=== PATIENT | male | born 1975 | race Caucasian/White ===

== ENCOUNTER 2017-06-13 11:03 | Emergency (ER) | payer MEDICAID, SELFPAY ==
[2017-06-13] MEDS: HumuLIN R (REGULAR) INSULIN (NovoLIN R) **100U/ML** PER UNIT IV ×2 (12:59)
[2017-06-13 14:26] LABS: BEDSIDE GLUCOSE 258 MG/DL (70-105)
== END 2017-06-13 15:55 | disposition home or self-care (01) ==
LOC: M ED 11:03
DX: E10.65 Type 1 diabetes mellitus with hyperglycemia (principal); Z89.429 Acquired absence of other toe(s), unspecified side; Z79.4 Long term (current) use of insulin
CPT/HCPCS: 99284

== ENCOUNTER → 2017-07-18 | Outpatient (REF) | payer MEDICAID ==
[2017-07-18 14:19] LABS: BASO # 0.1 10^3/uL (0.0-0.2); BASO % 1.4 % (0.0-1.0); EOS # 0.1 10^3/uL (0.0-0.50); EOS % 1.9 % (0.0-3.0); HEMATOCRIT 41.3 % (42.0-52.0); HEMOGLOBIN 14.1 g/dl (14.0-18.0); IMMATURE GRANULOCYTE % 0.2 % (0-3.0); LYMPH # 1.5 10^3/uL (1.5-4.5); LYMPH % 28.8 % (24.0-44.0); MEAN CORPUSCULAR HEMOGLOBIN 28.8 pg (27.0-33.0); MEAN CORPUSCULAR HGB CONC 34.1 g/dl (32.0-36.5); MEAN CORPUSCULAR VOLUME 84.3 fl (80.0-96.0); MONO # 0.6 10^3/uL (0.0-0.8); MONO % 12.3 % (0.0-5.0); NEUTROPHILS # 2.8 10^3/uL (1.8-7.7); NEUTROPHILS % 55.4 % (36.0-66.0); PLATELET COUNT, AUTOMATED 299 10^3/uL (150-450); RED CELL DISTRIBUTION WIDTH 11.8 % (11.5-14.5); WHITE BLOOD COUNT 5.1 10^3/uL (4.0-10.0)
[2017-07-18 14:40] LABS: ALBUMIN 4.1 GM/DL (3.2-5.2); ALBUMIN/GLOBULIN RATIO 1.32 (1.00-1.93); ALKALINE PHOSPHATASE 112 U/L (45-117); ALT/SGPT 19 U/L (12-78); ANION GAP 8 MEQ/L (8-16); AST/SGOT 9 U/L (7-37); BILIRUBIN,TOTAL 0.4 MG/DL (0.2-1.0); BLOOD UREA NITROGEN 20 MG/DL (7-18); CALCIUM LEVEL 8.7 MG/DL (8.5-10.1); CARBON DIOXIDE LEVEL 28 MEQ/L (21-32); CHLORIDE LEVEL 105 MEQ/L (98-107); CHOLESTEROL LEVEL 136 MG/DL (<200); CHOLESTEROL RISK RATIO 4.387 (<5); CREATININE FOR GFR 0.89 MG/DL (0.70-1.30); GLOMERULAR FILTRATION RATE > 60.0 (>60); GLUCOSE, FASTING 154 MG/DL (70-100); HDL CHOLESTEROL 31 MG/DL (>40); LDL CHOLESTEROL 79.8 MG/DL (<100); NON-HDL-C 105 MG/DL; POTASSIUM SERUM 4.4 MEQ/L (3.5-5.1); SODIUM LEVEL 141 MEQ/L (136-145); TOTAL PROTEIN 7.2 GM/DL (6.4-8.2); TRIGLYCERIDES LEVEL 126 MG/DL (<150)
[2017-07-18 14:44] LABS: ESTIMATED AVERAGE GLUCOSE 252 MG/DL (60-110); HEMOGLOBIN A1c 10.4 %
== END ==
LOC: M LAB REF 13:52
DX: E11.9 Type 2 diabetes mellitus without complications (principal)

== ENCOUNTER 2017-08-07 09:03 | Inpatient (IN) | payer OTHER, MEDICAID ==
[2017-08-07 09:55] LABS: BASO % 0.6 % (0.0-1.0); EOS # 0.1 10^3/uL (0.0-0.50); EOS % 1.1 % (0.0-3.0); HEMATOCRIT 37.2 % (42.0-52.0); HEMOGLOBIN 12.9 g/dl (14.0-18.0); IMMATURE GRANULOCYTE % 0.2 % (0-3.0); LYMPH # 0.9 10^3/uL (1.5-4.5); LYMPH % 15.7 % (24.0-44.0); MEAN CORPUSCULAR HEMOGLOBIN 29.5 pg (27.0-33.0); MEAN CORPUSCULAR HGB CONC 34.7 g/dl (32.0-36.5); MEAN CORPUSCULAR VOLUME 85.1 fl (80.0-96.0); MONO # 0.8 10^3/uL (0.0-0.8); MONO % 14.4 % (0.0-5.0); NEUTROPHILS # 3.7 10^3/uL (1.8-7.7); PLATELET COUNT, AUTOMATED 221 10^3/uL (150-450); RED BLOOD COUNT 4.37 10^6/uL (4.30-6.10); RED CELL DISTRIBUTION WIDTH 11.5 % (11.5-14.5); WHITE BLOOD COUNT 5.4 10^3/uL (4.0-10.0)
[2017-08-07 10:14] LABS: ERYTHROCYTE SEDIMENTATION RATE 17 mm/hr (0-15)
[2017-08-07 10:18] LABS: ANION GAP 6 MEQ/L (8-16); BLOOD UREA NITROGEN 18 MG/DL (7-18); C REACTIVE PROTEIN QUANTITATIV 0.78 MG/DL (0.00-0.30); CALCIUM LEVEL 8.4 MG/DL (8.5-10.1); CARBON DIOXIDE LEVEL 28 MEQ/L (21-32); CHLORIDE LEVEL 105 MEQ/L (98-107); CREATININE FOR GFR 0.92 MG/DL (0.70-1.30); GLOMERULAR FILTRATION RATE > 60.0 (>60); GLUCOSE, FASTING 138 MG/DL (70-100); POTASSIUM SERUM 3.9 MEQ/L (3.5-5.1); SODIUM LEVEL 139 MEQ/L (136-145)
[2017-08-07] MEDS ORDERED: VANCOMYCIN 1000 MG/20 ML VIAL (J3370) IP ×2 (11:00)
[2017-08-07] MEDS: VANCOMYCIN HCL 1,000 MG, VIAL MATE ADAPTER 1 EACH in D5W 250 ML IV ×4 (11:19→17:23)
[2017-08-07] MEDS ORDERED: GLUCAGON FOR INJ 1 MG VIAL (J1610) SC ×2 (12:15)
[2017-08-07] MEDS ORDERED: GLUCOSE 4 GM CHEW TABLET PO ×2 (12:15)
[2017-08-07] MEDS ORDERED: DEXTROSE 50% 50 ML SYRINGE IV ×2 (12:15)
[2017-08-07] MEDS: PIPERACILLIN/TAZOBACTAM SOD 3.375 GM in APPROPRIATE DILUENT 1 EA IV ×2 (12:25→19:57)
[2017-08-07] MEDS: HumaLOG INSULIN (NovoLOG) PER UNIT SC ×6 (12:47→20:34)
[2017-08-07 12:49] LABS: BEDSIDE GLUCOSE 124 MG/DL (70-105)
[2017-08-07] MEDS ORDERED: PIPERACILLIN/TAZOBACTAM SOD 3.375 GM in APPROPRIATE DILUENT 1 EA IV (13:00)
[2017-08-07] MEDS: HEPARIN SOD (PORCINE) 5000 UNITS/ML VIAL SC ×4 (14:58→21:45)
[2017-08-07 17:14] LABS: BEDSIDE GLUCOSE 250 MG/DL (70-105)
[2017-08-07] MEDS: MUPIROCIN 2% OINT 22 GM TUBE TOP ×2 (19:57)
[2017-08-07 20:34] LABS: BEDSIDE GLUCOSE 235 MG/DL (70-105)
[2017-08-08] MEDS: PIPERACILLIN/TAZOBACTAM SOD 3.375 GM in APPROPRIATE DILUENT 1 EA IV ×3 (03:55→21:26)
[2017-08-08] MEDS: VANCOMYCIN HCL 1,000 MG, VIAL MATE ADAPTER 1 EACH in D5W 250 ML IV ×4 (04:28→18:30)
[2017-08-08] MEDS: HEPARIN SOD (PORCINE) 5000 UNITS/ML VIAL SC ×6 (05:30→21:28)
[2017-08-08 05:52] LABS: HEMATOCRIT 38.1 % (42.0-52.0); HEMOGLOBIN 13.1 g/dl (14.0-18.0); MEAN CORPUSCULAR HEMOGLOBIN 29.6 pg (27.0-33.0); MEAN CORPUSCULAR HGB CONC 34.4 g/dl (32.0-36.5); PLATELET COUNT, AUTOMATED 206 10^3/uL (150-450); RED BLOOD COUNT 4.43 10^6/uL (4.30-6.10); RED CELL DISTRIBUTION WIDTH 11.6 % (11.5-14.5)
[2017-08-08 06:17] LABS: ANION GAP 8 MEQ/L (8-16); BLOOD UREA NITROGEN 13 MG/DL (7-18); CARBON DIOXIDE LEVEL 27 MEQ/L (21-32); CHLORIDE LEVEL 103 MEQ/L (98-107); CREATININE FOR GFR 0.91 MG/DL (0.70-1.30); GLOMERULAR FILTRATION RATE > 60.0 (>60); GLUCOSE, FASTING 379 MG/DL (70-100); MAGNESIUM LEVEL 2.4 MG/DL (1.8-2.4); POTASSIUM SERUM 4.3 MEQ/L (3.5-5.1); SODIUM LEVEL 138 MEQ/L (136-145)
[2017-08-08] MEDS: MUPIROCIN 2% OINT 22 GM TUBE TOP ×2 (08:33)
[2017-08-08] MEDS: HumaLOG INSULIN (NovoLOG) PER UNIT SC ×8 (08:33→21:27)
[2017-08-08 11:16] LABS: BEDSIDE GLUCOSE 137 MG/DL (70-105)
[2017-08-08] MEDS: KETOCONAZOLE 2% CREAM TOP ×2 (14:13)
[2017-08-08] MEDS: ACETAMINOPHEN TAB 650MG DOSE (2X325MG) PO ×2 (21:31)
[2017-08-09] MEDS: PIPERACILLIN/TAZOBACTAM SOD 3.375 GM in APPROPRIATE DILUENT 1 EA IV ×3 (04:07→20:10)
[2017-08-09 04:12] LABS: HEMATOCRIT 38.6 % (42.0-52.0); HEMOGLOBIN 13.4 g/dl (14.0-18.0); MEAN CORPUSCULAR HEMOGLOBIN 29.8 pg (27.0-33.0); MEAN CORPUSCULAR HGB CONC 34.7 g/dl (32.0-36.5); PLATELET COUNT, AUTOMATED 220 10^3/uL (150-450); RED BLOOD COUNT 4.49 10^6/uL (4.30-6.10); RED CELL DISTRIBUTION WIDTH 11.6 % (11.5-14.5)
[2017-08-09 04:32] LABS: ANION GAP 5 MEQ/L (8-16); BLOOD UREA NITROGEN 16 MG/DL (7-18); CALCIUM LEVEL 8.6 MG/DL (8.5-10.1); CARBON DIOXIDE LEVEL 31 MEQ/L (21-32); CHLORIDE LEVEL 102 MEQ/L (98-107); GLOMERULAR FILTRATION RATE > 60.0 (>60); GLUCOSE, FASTING 336 MG/DL (70-100); MAGNESIUM LEVEL 2.5 MG/DL (1.8-2.4); POTASSIUM SERUM 4.5 MEQ/L (3.5-5.1); SODIUM LEVEL 138 MEQ/L (136-145); VANCOMYCIN LEVEL TROUGH 6.6 UG/ML (10.0-20.0)
[2017-08-09 04:35] LABS: ESTIMATED AVERAGE GLUCOSE 223 MG/DL (60-110); HEMOGLOBIN A1c 9.4 %
[2017-08-09] MEDS: VANCOMYCIN HCL 1,000 MG, VIAL MATE ADAPTER 1 EACH in D5W 250 ML IV ×6 (04:53→21:35)
[2017-08-09] MEDS: HEPARIN SOD (PORCINE) 5000 UNITS/ML VIAL SC ×6 (05:13→21:36)
[2017-08-09] MEDS: HumaLOG INSULIN (NovoLOG) PER UNIT SC ×8 (07:30→21:36)
[2017-08-09] MEDS: LEVEMIR (INSULIN DETEMIR) 1 UNITS/0.01ML SC ×4 (08:07→21:35)
[2017-08-09] MEDS: KETOCONAZOLE 2% CREAM TOP ×4 (08:09→10:24)
[2017-08-09] MEDS: MUPIROCIN 2% OINT 22 GM TUBE TOP ×2 (12:14)
[2017-08-09 21:31] LABS: VANCOMYCIN LEVEL TROUGH 12.6 UG/ML (10.0-20.0)
[2017-08-10] MEDS: VANCOMYCIN HCL 500 MG in D5W MINI-BAG PLUS 100 ML IV (00:09)
[2017-08-10] MEDS: PIPERACILLIN/TAZOBACTAM SOD 3.375 GM in APPROPRIATE DILUENT 1 EA IV (04:05)
[2017-08-10] MEDS: HEPARIN SOD (PORCINE) 5000 UNITS/ML VIAL SC ×2 (05:59)
[2017-08-10] MEDS: VANCOMYCIN HCL 1,000 MG, VIAL MATE ADAPTER 1 EACH in D5W 250 ML IV ×2 (06:00)
[2017-08-10 06:27] LABS: HEMATOCRIT 39.6 % (42.0-52.0); HEMOGLOBIN 13.8 g/dl (14.0-18.0); MEAN CORPUSCULAR HEMOGLOBIN 29.7 pg (27.0-33.0); MEAN CORPUSCULAR HGB CONC 34.8 g/dl (32.0-36.5); MEAN CORPUSCULAR VOLUME 85.2 fl (80.0-96.0); PLATELET COUNT, AUTOMATED 228 10^3/uL (150-450); RED BLOOD COUNT 4.65 10^6/uL (4.30-6.10); RED CELL DISTRIBUTION WIDTH 11.5 % (11.5-14.5)
[2017-08-10 06:48] LABS: ANION GAP 6 MEQ/L (8-16); BLOOD UREA NITROGEN 17 MG/DL (7-18); CALCIUM LEVEL 8.6 MG/DL (8.5-10.1); CARBON DIOXIDE LEVEL 31 MEQ/L (21-32); CHLORIDE LEVEL 101 MEQ/L (98-107); CREATININE FOR GFR 0.93 MG/DL (0.70-1.30); GLOMERULAR FILTRATION RATE > 60.0 (>60); GLUCOSE, FASTING 301 MG/DL (70-100); MAGNESIUM LEVEL 2.4 MG/DL (1.8-2.4); POTASSIUM SERUM 4.2 MEQ/L (3.5-5.1); SODIUM LEVEL 138 MEQ/L (136-145)
[2017-08-10] MEDS: LEVEMIR (INSULIN DETEMIR) 1 UNITS/0.01ML SC ×2 (07:53)
[2017-08-10] MEDS: HumaLOG INSULIN (NovoLOG) PER UNIT SC ×2 (07:53)
[2017-08-10] MEDS: MUPIROCIN 2% OINT 22 GM TUBE TOP ×2 (07:54)
[2017-08-11 03:52] LABS: BEDSIDE GLUCOSE 308 MG/DL (70-105)
[2017-08-11 12:05] LABS: BEDSIDE GLUCOSE 272 MG/DL (70-105)
[2017-08-11 12:05] LABS: BEDSIDE GLUCOSE 287 MG/DL (70-105)
[2017-08-11 12:05] LABS: BEDSIDE GLUCOSE 246 MG/DL (70-105)
[2017-08-11 12:05] LABS: BEDSIDE GLUCOSE 196 MG/DL (70-105)
[2017-08-11 12:05] LABS: BEDSIDE GLUCOSE 348 MG/DL (70-105)
== END 2017-08-10 12:45 | disposition home or self-care (01) | DRG 380 ==
LOC: M MS5PR 08-08 15:58 → M ED 09:03 → M ED INP 12:01 → M MSPAV 14:11
PROC: 0JBQ0ZZ Excision of Right Foot Subcutaneous Tissue and Fascia, Open Approach (ICD-10-PCS; principal; 2017-08-07)
DX: E11.621 Type 2 diabetes mellitus with foot ulcer (principal); L03.115 Cellulitis of right lower limb; B95.61 Methicillin susceptible Staphylococcus aureus infection as the cause of diseases classified elsewhere; Z79.4 Long term (current) use of insulin; B95.1 Streptococcus, group B, as the cause of diseases classified elsewhere; L97.519 Non-pressure chronic ulcer of other part of right foot with unspecified severity

== ENCOUNTER 2017-09-16 14:28 | Emergency (ER) | payer OTHER | END 2017-09-16 16:48 | disposition home or self-care (01) | LOC: M ED 14:28 | DX: S83.92XA Sprain of unspecified site of left knee, initial encounter (principal); X50.1XXA Overexertion from prolonged static or awkward postures, initial encounter; Y92.9 Unspecified place or not applicable; Y93.01 Activity, walking, marching and hiking; Y99.0 Civilian activity done for income or pay; Z79.4 Long term (current) use of insulin | CPT/HCPCS: 73564 ==

== ENCOUNTER 2017-09-23 15:12 | Emergency (ER) | payer OTHER ==
[2017-09-23] MEDS: NORCO, ANEXSIA 5/325MG TABLET (HYDROcodone/ACETAMINOPHEN) PO (18:46)
== END 2017-09-23 18:47 | disposition home or self-care (01) ==
LOC: M ED 15:12
DX: M25.561 Pain in right knee (principal); E11.40 Type 2 diabetes mellitus with diabetic neuropathy, unspecified; F33.9 Major depressive disorder, recurrent, unspecified; Z89.429 Acquired absence of other toe(s), unspecified side; Z98.890 Other specified postprocedural states; Z79.899 Other long term (current) drug therapy
CPT/HCPCS: 73564

== ENCOUNTER 2017-10-22 15:17 | Emergency (ER) | payer OTHER ==
[2017-10-22] MEDS ORDERED: SODIUM CHLORIDE 0.9% 1000 ML (15:25)
[2017-10-22] MEDS ORDERED: HumuLIN R (REGULAR) INSULIN (NovoLIN R) **100U/ML** PER UNIT (16:30)
[2017-10-22] MEDS ORDERED: IBUPROFEN 800 MG TAB (17:00)
[2017-10-23 04:09] LABS: ALBUMIN 3.7 GM/DL (3.2-5.2); ALBUMIN/GLOBULIN RATIO 1.54 (1.00-1.93); ALKALINE PHOSPHATASE 91 U/L (45-117); ALT/SGPT 18 U/L (12-78); ANION GAP 7 MEQ/L (8-16); AST/SGOT 12 U/L (7-37); BILIRUBIN,TOTAL 0.5 MG/DL (0.2-1.0); BLOOD UREA NITROGEN 20 MG/DL (7-18); CALCIUM LEVEL 7.8 MG/DL (8.5-10.1); CARBON DIOXIDE LEVEL 27 MEQ/L (21-32); CHLORIDE LEVEL 102 MEQ/L (98-107); CK-MB VALUE MASS 2.2 NG/ML (<3.6); CPK CREATINE PHOSPHOKINASE 130 U/L (39-308); CREATININE FOR GFR 0.93 MG/DL (0.70-1.30); ETHYL ALCOHOL (ETHANOL) < 0.003 % (0.000-0.010); GLOMERULAR FILTRATION RATE > 60.0 (>60); GLUCOSE, FASTING 270 MG/DL (70-100); MAGNESIUM LEVEL 1.9 MG/DL (1.8-2.4); MB/CK RELATIVE INDEX 1.69 (< OR =4); POTASSIUM SERUM 3.8 MEQ/L (3.5-5.1); SODIUM LEVEL 136 MEQ/L (136-145); THYROID STIMULATING HORMONE 0.785 uIU/ML (0.358-3.740); TOTAL PROTEIN 6.1 GM/DL (6.4-8.2)
[2017-10-23 09:41] LABS: HEMATOCRIT 34.2 % (42.0-52.0); HEMOGLOBIN 12.4 g/dl (13.5-17.5); MEAN CORPUSCULAR HEMOGLOBIN 30.5 pg (27.0-33.0); MEAN CORPUSCULAR HGB CONC 36.3 g/dl (32.0-36.5); MEAN CORPUSCULAR VOLUME 84.2 fl (80.0-96.0); PLATELET COUNT, AUTOMATED 184 10^3/uL (150-450); RED BLOOD COUNT 4.06 10^6/uL (4.30-6.10); WHITE BLOOD COUNT 7.1 10^3/uL (4.0-10.0)
[2017-10-23 10:13] LABS: ESTIMATED AVERAGE GLUCOSE 243 MG/DL (60-110); HEMOGLOBIN A1c 10.1 %
== END 2017-10-23 01:04 | disposition home or self-care (01) ==
LOC: M ED 10-23 01:04
DX: R55 Syncope and collapse (principal); R53.1 Weakness; E11.9 Type 2 diabetes mellitus without complications; Z79.4 Long term (current) use of insulin
CPT/HCPCS: 71046

== ENCOUNTER → 2017-11-17 | Outpatient (REF) | payer OTHER ==
[2017-11-17 13:28] LABS: ESTIMATED AVERAGE GLUCOSE 237 MG/DL (60-110); HEMOGLOBIN A1c 9.9 %
== END ==
LOC: M LAB REF 11:53
DX: E11.9 Type 2 diabetes mellitus without complications (principal)

== ENCOUNTER 2018-01-27 06:34 | Emergency (ER) | payer OTHER ==
[2018-01-27] MEDS: ACETAMINOPHEN 325 MG TAB PO (07:00)
[2018-01-27 08:05] LABS: BASO # 0.1 10^3/uL (0.0-0.2); BASO % 1.2 % (0.0-1.0); EOS # 0.1 10^3/uL (0.0-0.50); EOS % 2.1 % (0.0-3.0); HEMATOCRIT 38.5 % (42.0-52.0); HEMOGLOBIN 13.6 g/dl (13.5-17.5); IMMATURE GRANULOCYTE % 0.2 % (0-3.0); LYMPH # 1.6 10^3/uL (1.5-4.5); LYMPH % 30.3 % (24.0-44.0); MEAN CORPUSCULAR HEMOGLOBIN 30.4 pg (27.0-33.0); MEAN CORPUSCULAR HGB CONC 35.3 g/dl (32.0-36.5); MEAN CORPUSCULAR VOLUME 85.9 fl (80.0-96.0); MONO # 0.5 10^3/uL (0.0-0.8); MONO % 10.1 % (0.0-5.0); NEUTROPHILS # 2.9 10^3/uL (1.8-7.7); NEUTROPHILS % 56.1 % (36.0-66.0); PLATELET COUNT, AUTOMATED 210 10^3/uL (150-450); RED BLOOD COUNT 4.48 10^6/uL (4.30-6.10); WHITE BLOOD COUNT 5.2 10^3/uL (4.0-10.0)
[2018-01-27 08:13] LABS: INR 0.93; PARTIAL THROMBOPLASTIN TIME 32.5 SECONDS (25.4-37.6); PROTHROMBIN TIME 12.6 SECONDS (12.1-14.4)
[2018-01-27 08:19] LABS: ANION GAP 7 MEQ/L (8-16); BLOOD UREA NITROGEN 21 MG/DL (7-18); CALCIUM LEVEL 8.8 MG/DL (8.5-10.1); CARBON DIOXIDE LEVEL 28 MEQ/L (21-32); CHLORIDE LEVEL 106 MEQ/L (98-107); CREATININE FOR GFR 0.92 MG/DL (0.70-1.30); GLOMERULAR FILTRATION RATE > 60.0 (>60); GLUCOSE, FASTING 228 MG/DL (70-100); SODIUM LEVEL 141 MEQ/L (136-145)
== END 2018-01-27 08:58 | disposition home or self-care (01) ==
LOC: M ED 06:34
DX: R22.41 Localized swelling, mass and lump, right lower limb (principal); E11.9 Type 2 diabetes mellitus without complications; E78.5 Hyperlipidemia, unspecified; Z79.899 Other long term (current) drug therapy; Z79.84 Long term (current) use of oral hypoglycemic drugs
CPT/HCPCS: 93971

== ENCOUNTER → 2018-02-02 | Outpatient (REF) | payer OTHER ==
[2018-02-03 00:44] LABS: ESTIMATED AVERAGE GLUCOSE 186 MG/DL (60-110); HEMOGLOBIN A1c 8.1 %
== END ==
LOC: M LAB REF 12:14
DX: E11.9 Type 2 diabetes mellitus without complications (principal)

== ENCOUNTER 2018-04-14 06:00 | Emergency (ER) | payer OTHER ==
[2018-04-14 06:33] LABS: BEDSIDE GLUCOSE 240 MG/DL (70-105)
== END 2018-04-14 07:08 | disposition home or self-care (01) ==
LOC: M ED 06:00
DX: L03.116 Cellulitis of left lower limb (principal); E10.628 Type 1 diabetes mellitus with other skin complications; Z87.2 Personal history of diseases of the skin and subcutaneous tissue; Z89.422 Acquired absence of other left toe(s); Z79.899 Other long term (current) drug therapy; Z98.890 Other specified postprocedural states
CPT/HCPCS: 99283

== ENCOUNTER → 2018-06-01 | Outpatient (REF) | payer OTHER, SELFPAY ==
[~2018-06-01] MED LIST: ATOR40TA75 PO; CLEO300C2 PO; DOXY-350 PO; GLIP5TAB8 PO; IBUP-1022 PO; IBUP1TAB7 PO; INSUH10VL SC; METF10004; METF500T4 PO; MUPI2OI TOP; NORCOTAB PO; NOVO70VL SC; TOUJ1.2I; [UNRECOGNIZED DRUG - CODE] XX
[2018-06-01 13:57] LABS: ALBUMIN 4.1 GM/DL (3.2-5.2); ALT/SGPT 31 U/L (12-78); BILIRUBIN,TOTAL 0.3 MG/DL (0.2-1.0); BLOOD UREA NITROGEN 17 MG/DL (7-18); CALCIUM LEVEL 8.2 MG/DL (8.5-10.1); CARBON DIOXIDE LEVEL 28 MEQ/L (21-32); CHLORIDE LEVEL 107 MEQ/L (98-107); CREATININE FOR GFR 0.89 MG/DL (0.70-1.30); GLOMERULAR FILTRATION RATE > 60.0 (>60); GLUCOSE, FASTING 108 MG/DL (70-100); POTASSIUM SERUM 4.8 MEQ/L (3.5-5.1); SODIUM LEVEL 142 MEQ/L (136-145); TOTAL PROTEIN 6.9 GM/DL (6.4-8.2)
[2018-06-01 14:32] LABS: MAU/CREAT RATIO 445.3 MCG/MG (0.0-30.0)
== END ==
LOC: M LAB REF 11:51
PROVIDERS: ATTEND Nurse Practitioner Adult Health
DX: E11.9 Type 2 diabetes mellitus without complications (principal)

== ENCOUNTER 2018-08-24 08:38 | Emergency (ER) | payer OTHER, SELFPAY ==
[~2018-08-24] VITALS: Ht 180.3 cm; Wt 105.5 kg
[~2018-08-24 08:38] MED LIST changes: +HYDR-3715 PO; -NORCOTAB PO
[2018-08-24] MEDS ORDERED: STEG5TAB (08:45)
[2018-08-24] MEDS ORDERED: LISI-542 PO (08:45)
[2018-08-24] MEDS ORDERED: SITA50TAB PO (08:55)
[2018-08-24 09:38] LABS: BASO # 0.1 10^3/uL (0.0-0.2); BASO % 0.8 % (0.0-1.0); EOS # 0.1 10^3/uL (0.0-0.50); EOS % 1.5 % (0.0-3.0); HEMATOCRIT 40.2 % (42.0-52.0); HEMOGLOBIN 14.1 g/dl (13.5-17.5); LYMPH # 1.7 10^3/uL (1.5-4.5); LYMPH % 24.2 % (24.0-44.0); MEAN CORPUSCULAR HEMOGLOBIN 30.1 pg (27.0-33.0); MEAN CORPUSCULAR HGB CONC 35.1 g/dl (32.0-36.5); MEAN CORPUSCULAR VOLUME 85.7 fl (80.0-96.0); MONO # 0.8 10^3/uL (0.0-0.8); MONO % 10.6 % (0.0-5.0); NEUTROPHILS # 4.4 10^3/uL (1.8-7.7); NEUTROPHILS % 62.6 % (36.0-66.0); PLATELET COUNT, AUTOMATED 226 10^3/uL (150-450); RED BLOOD COUNT 4.69 10^6/uL (4.30-6.10); WHITE BLOOD COUNT 7.1 10^3/uL (4.0-10.0)
--- NOTE | 2018-08-24 09:57 | REP ---
Oral chest x-ray: Single view. History: Dyspnea and cough. Comparison study: October 22, 2017. Findings: The lungs are well inflated and clear. Pleural angles are sharp. Heart size is normal. Pulmonary vasculature is not increased. EKG electrodes are seen. No bony abnormality is seen. Impression: Negative portable chest x-ray. Electronically Signed by Daniel Garcia MD 08/24/2018 09:48 A
[2018-08-24 10:27] LABS: INFLUENZA A AMPLIFICATION NEGATIVE (NEGATIVE); INFLUENZA B AMPLIFICATION NEGATIVE (NEGATIVE)
[2018-08-24 10:46] LABS: ALBUMIN 4.6 GM/DL (3.2-5.2); ALT/SGPT 34 U/L (12-78); BILIRUBIN,DIRECT 0.1 MG/DL (0.0-0.2); BILIRUBIN,TOTAL 0.4 MG/DL (0.2-1.0); BLOOD UREA NITROGEN 35 MG/DL (7-18); CALCIUM LEVEL 8.7 MG/DL (8.5-10.1); CARBON DIOXIDE LEVEL 27 MEQ/L (21-32); CHLORIDE LEVEL 105 MEQ/L (98-107); CPK CREATINE PHOSPHOKINASE 85 U/L (39-308); CREATININE FOR GFR 1.33 MG/DL (0.70-1.30); GLOMERULAR FILTRATION RATE > 60.0 (>60); GLUCOSE, FASTING 113 MG/DL (70-100); MB/CK RELATIVE INDEX 3.76 (< OR =4); NT-PRO BNP 19 PG/ML (<125); POTASSIUM SERUM 4.7 MEQ/L (3.5-5.1); SODIUM LEVEL 141 MEQ/L (136-145); TOTAL PROTEIN 7.5 GM/DL (6.4-8.2); TROPONIN I < 0.02 NG/ML (< 0.10)
[2018-08-24] MEDS ORDERED: ISOVUE-370 76% 100ML VIAL (Q9967) As Ordered ONE (12:32)
--- NOTE | 2018-08-24 13:43 | REP ---
CT ANGIOGRAM CHEST: TECHNIQUE: Axial contrast enhanced images from the thoracic inlet to the upper abdomen using 100 mL Isovue 370 intravenous contrast material with multiplanar reformations. There is no CT evidence of pulmonary embolism. There is no thoracic aortic aneurysm or dissection. Heart is normal in size. There is no pleural or pericardial effusion. There is no mediastinal, hilar, or chest wall lymphadenopathy. There are dependent atelectatic changes in both lungs. There are degenerative changes of the spine. IMPRESSION: No CT evidence of pulmonary embolism or other acute finding. Electronically Signed by Miguel Carmona MD 08/24/2018 04:32 P
[2018-08-24 14:30] VITALS: BP 123/59
--- NOTE | 2018-08-25 21:46 | ECGEPIP ---
Stationary ECG Study [facility] - ED Test Date: 2018-08-24 Pat Name: RENETTA BAILEY Department: Room: - Gender: M [employer]: : 1975 Requested By: Mariia Durant Order Number: [id number] Reading MD: Joni Mccartney Measurements Intervals [place] [address] Rate: 74 P: 13 KS: 165 QRS: 36 QRSD: 103 T: 8 QT: 368 QTc: 409 Interpretive Statements SINUS RHYTHM POSSIBLE INFERIOR MYOCARDIAL INFARCTION, PROBABLY OLD BENIGN EARLY REPOLARIZATION NO PRIORS FOR COMPARISON Electronically Signed On 08-25-2018 21:45:57 EDT by Joni Mccartney
== END 2018-08-24 14:43 | disposition home or self-care (01) ==
LOC: M ED 08:38
DX: R06.09 Other forms of dyspnea (principal); R94.31 Abnormal electrocardiogram [ECG] [EKG]; E11.9 Type 2 diabetes mellitus without complications; Z82.49 Family history of ischemic heart disease and other diseases of the circulatory system; Z83.3 Family history of diabetes mellitus; Z79.4 Long term (current) use of insulin; Z79.899 Other long term (current) drug therapy
CPT/HCPCS: 71045; 71275; 80048; 80076; 82550; 82553; 83605; 83880; 84443; 84484; 85025; 85379; 87502; 93005; 93041; 94760; 99285; Q9967

== ENCOUNTER → 2018-09-28 | Outpatient (REF) | payer OTHER ==
[~2018-09-28] MED LIST changes: +LISI-542 PO; +SITA50TAB PO; +STEG5TAB
[2018-09-28 14:00] LABS: ALBUMIN 4.4 GM/DL (3.2-5.2); ALT/SGPT 31 U/L (12-78); BILIRUBIN,TOTAL 0.4 MG/DL (0.2-1.0); BLOOD UREA NITROGEN 24 MG/DL (7-18); CALCIUM LEVEL 8.8 MG/DL (8.5-10.1); CARBON DIOXIDE LEVEL 29 MEQ/L (21-32); CHLORIDE LEVEL 108 MEQ/L (98-107); CREATININE FOR GFR 1.16 MG/DL (0.70-1.30); GLOMERULAR FILTRATION RATE > 60.0 (>60); GLUCOSE, FASTING 161 MG/DL (70-100); POTASSIUM SERUM 4.6 MEQ/L (3.5-5.1); SODIUM LEVEL 141 MEQ/L (136-145); TOTAL PROTEIN 7.8 GM/DL (6.4-8.2)
[2018-09-28 14:12] LABS: HEMOGLOBIN A1c 8.3 %
== END ==
LOC: M LAB REF 13:02
PROVIDERS: ATTEND Nurse Practitioner Adult Health
DX: E11.9 Type 2 diabetes mellitus without complications (principal)

== ENCOUNTER → 2018-10-16 | Outpatient (REF) | payer OTHER | LOC: M SMT 13:09 | PROVIDERS: ATTEND Urology | DX: Z30.2 Encounter for sterilization (principal) ==

== ENCOUNTER → 2018-12-29 | Outpatient (REF) | payer OTHER ==
[2018-12-29 17:41] LABS: ALBUMIN 4.5 GM/DL (3.2-5.2); ALT/SGPT 34 U/L (12-78); BILIRUBIN,TOTAL 0.3 MG/DL (0.2-1.0); BLOOD UREA NITROGEN 21 MG/DL (7-18); CALCIUM LEVEL 9.3 MG/DL (8.5-10.1); CARBON DIOXIDE LEVEL 27 MEQ/L (21-32); CHLORIDE LEVEL 107 MEQ/L (98-107); CHOLESTEROL LEVEL 78 MG/DL (<200); CREATININE FOR GFR 1.07 MG/DL (0.70-1.30); GLOMERULAR FILTRATION RATE > 60.0 (>60); GLUCOSE, FASTING 196 MG/DL (70-100); HDL CHOLESTEROL 25 MG/DL (>40); LDL CHOLESTEROL 15 MG/DL (<100); NON-HDL-C 53 MG/DL; POTASSIUM SERUM 4.6 MEQ/L (3.5-5.1); SODIUM LEVEL 140 MEQ/L (136-145); TOTAL PROTEIN 7.5 GM/DL (6.4-8.2); TRIGLYCERIDES LEVEL 192 MG/DL (<150)
[2018-12-29 17:55] LABS: HEMOGLOBIN A1c 11.2 %
[2018-12-29 18:01] LABS: CREATININE, URINE 49.6 MG/DL; MAU/CREAT RATIO 241.9 MCG/MG (0.0-30.0)
== END ==
LOC: M LAB REF 16:14
PROVIDERS: ATTEND Nurse Practitioner Adult Health
DX: E11.9 Type 2 diabetes mellitus without complications (principal)

== ENCOUNTER → 2019-04-05 | Outpatient (REF) | payer OTHER ==
[~2019-04-05] MED LIST changes: +METF-791 PO; -METF500T4 PO
[2019-04-05 15:27] LABS: ALBUMIN 4.2 GM/DL (3.2-5.2); ALT/SGPT 27 U/L (12-78); BILIRUBIN,TOTAL 0.3 MG/DL (0.2-1.0); BLOOD UREA NITROGEN 24 MG/DL (7-18); CALCIUM LEVEL 8.8 MG/DL (8.5-10.1); CARBON DIOXIDE LEVEL 31 MEQ/L (21-32); CHLORIDE LEVEL 105 MEQ/L (98-107); CREATININE FOR GFR 0.99 MG/DL (0.70-1.30); GLOMERULAR FILTRATION RATE > 60.0 (>60); GLUCOSE, FASTING 190 MG/DL (70-100); POTASSIUM SERUM 4.8 MEQ/L (3.5-5.1); SODIUM LEVEL 140 MEQ/L (136-145); TOTAL PROTEIN 7.4 GM/DL (6.4-8.2)
[2019-04-05 15:37] LABS: HEMOGLOBIN A1c 9.1 %
== END ==
LOC: M LAB REF 14:57
PROVIDERS: ATTEND Nurse Practitioner Adult Health
DX: E11.9 Type 2 diabetes mellitus without complications (principal)

== ENCOUNTER → 2019-07-02 | Outpatient (REF) | payer OTHER ==
[2019-07-02 13:28] LABS: HEMOGLOBIN A1c 6.6 %
[2019-07-02 13:52] LABS: ALBUMIN 4.3 GM/DL (3.2-5.2); ALT/SGPT 22 U/L (12-78); BILIRUBIN,TOTAL 0.4 MG/DL (0.2-1.0); BLOOD UREA NITROGEN 20 MG/DL (7-18); CALCIUM LEVEL 8.8 MG/DL (8.5-10.1); CARBON DIOXIDE LEVEL 29 MEQ/L (21-32); CHLORIDE LEVEL 109 MEQ/L (98-107); CHOLESTEROL LEVEL 74 MG/DL (<200); CHOLESTEROL RISK RATIO 1.897 (<5); CREATININE FOR GFR 1.02 MG/DL (0.70-1.30); GLOMERULAR FILTRATION RATE > 60.0 (>60); GLUCOSE, FASTING 157 MG/DL (70-100); HDL CHOLESTEROL 39 MG/DL (>40); LDL CHOLESTEROL 22 MG/DL (<100); NON-HDL-C 35 MG/DL; SODIUM LEVEL 141 MEQ/L (136-145); TOTAL PROTEIN 7.2 GM/DL (6.4-8.2); TRIGLYCERIDES LEVEL 67 MG/DL (<150)
== END ==
LOC: M LAB REF 12:28
PROVIDERS: ATTEND Physician Assistant
DX: N52.9 Male erectile dysfunction, unspecified (principal); E11.9 Type 2 diabetes mellitus without complications; E66.3 Overweight; Z68.29 Body mass index [BMI] 29.0-29.9, adult

== ENCOUNTER → 2019-09-24 | Outpatient (REF) | payer OTHER ==
[2019-09-24 12:04] LABS: ALBUMIN 4.4 GM/DL (3.2-5.2); ALT/SGPT 26 U/L (12-78); BILIRUBIN,TOTAL 0.3 MG/DL (0.2-1.0); BLOOD UREA NITROGEN 30 MG/DL (7-18); CALCIUM LEVEL 8.9 MG/DL (8.5-10.1); CARBON DIOXIDE LEVEL 30 MEQ/L (21-32); CHLORIDE LEVEL 109 MEQ/L (98-107); CREATININE FOR GFR 1.24 MG/DL (0.70-1.30); GLOMERULAR FILTRATION RATE > 60.0 (>60); GLUCOSE, FASTING 45 MG/DL (70-100); SODIUM LEVEL 142 MEQ/L (136-145); TOTAL PROTEIN 7.4 GM/DL (6.4-8.2)
[2019-09-24 13:10] LABS: HEMOGLOBIN A1c 6.4 %
== END ==
LOC: M LAB REF 11:31
PROVIDERS: ATTEND Physician Assistant
DX: E11.3213 Type 2 diabetes mellitus with mild nonproliferative diabetic retinopathy with macular edema, bilateral (principal); I10 Essential (primary) hypertension

== ENCOUNTER → 2019-10-01 | Outpatient (REF) | payer OTHER ==
[~2019-10-01] MED LIST changes: -METF-791 PO; +METF-838 PO
== END ==
LOC: M LAB REF 14:17
PROVIDERS: ATTEND Physician Assistant
DX: R31.29 Other microscopic hematuria (principal)

== ENCOUNTER → 2019-10-17 | Outpatient (CLI) | payer OTHER ==
[~2019-10-17] MED LIST changes: +CEPH500T PO; -METF10004; +METF10004 PO; +TRAM50TA2 PO
== END ==
LOC: M LABSMTC 08:59
PROVIDERS: ATTEND Anesthesiology
DX: Z01.812 Encounter for preprocedural laboratory examination (principal); Z11.59 Encounter for screening for other viral diseases

== ENCOUNTER 2019-10-20 07:05 | Day surgery (SDC) | payer OTHER ==
[~2019-10-20] VITALS: Ht 180.3 cm; Wt 102.5 kg
[~2019-10-20 07:05] MED LIST changes: +BUPIVACAINE HCL 0.5% 30 ML VIAL As Ordered ONE; -CEPH500T PO; +LIDOCAINE 1% SDV 30ML VIAL As Ordered ONE; +LIDOCAINE 2% 100MG/5ML SDV (FOR ANES.) As Ordered ONE; +MIDAZOLAM INJ 2MG/2ML VIAL (J2250 PER 1MG) As Ordered ONE; +ONDANSETRON 4MG/2ML VIAL As Ordered ONE; -TRAM50TA2 PO; +dexameTHASONE 4 MG/ML 1ML VIAL (J1100 PER 1MG) As Ordered ONE; +fentaNYL 100 MCG/2 ML INJECTION (J3010) As Ordered ONE; +propofoL 200 MG/20 ML VIAL As Ordered ONE
[2019-10-20] MEDS ORDERED: ceFAZolin SOD 2 GM in IV 1 EA IV ONE (07:15)
[2019-10-20] MEDS ORDERED: LR 1,000 ML IV ONE (07:15)
[2019-10-20 07:44] LABS: HEMATOCRIT 35.8 % (42.0-52.0); HEMOGLOBIN 11.9 g/dl (13.5-17.5); MEAN CORPUSCULAR HEMOGLOBIN 28.6 pg (27.0-33.0); MEAN CORPUSCULAR HGB CONC 33.2 g/dl (32.0-36.5); MEAN CORPUSCULAR VOLUME 86.1 fl (80.0-96.0); PLATELET COUNT, AUTOMATED 289 10^3/uL (150-450); RED BLOOD COUNT 4.16 10^6/uL (4.30-6.10); WHITE BLOOD COUNT 5.6 10^3/uL (4.0-10.0)
[2019-10-20 08:15] LABS: BLOOD UREA NITROGEN 25 MG/DL (7-18); CALCIUM LEVEL 8.8 MG/DL (8.5-10.1); CARBON DIOXIDE LEVEL 29 MEQ/L (21-32); CHLORIDE LEVEL 108 MEQ/L (98-107); CREATININE FOR GFR 1.36 MG/DL (0.70-1.30); GLOMERULAR FILTRATION RATE > 60.0 (>60); GLUCOSE, FASTING 163 MG/DL (70-100); POTASSIUM SERUM 5.7 MEQ/L (3.5-5.1); SODIUM LEVEL 140 MEQ/L (136-145)
[2019-10-20] MEDS ORDERED: ACETAMINOPHEN 1000MG 100ML IV BTL (OFIRMEV) (J0131 PER 10MG) As Ordered ONE (09:24)
[2019-10-20] MEDS ORDERED: propofoL 200 MG/20 ML VIAL As Ordered ONE (09:30)
[2019-10-20] MEDS ORDERED: TRAM50TA2 PO (09:55)
[2019-10-20] MEDS ORDERED: CEPH500T PO (09:55)
[2019-10-20] MEDS ORDERED: PERCOCET 5MG/325MG TAB PO PRN (10:15)
[2019-10-20] MEDS ORDERED: LR 1,000 ML IV SCH (10:15)
[2019-10-20] MEDS ORDERED: KETOROLAC 30 MG/ML 1ML VIAL IV PRN (10:15)
[2019-10-20] MEDS ORDERED: ONDANSETRON 4MG/2ML VIAL IV PRN (10:15)
[2019-10-20] MEDS ORDERED: METOCLOPRAMIDE INJ 10MG/2ML VIAL (J2765 PER 1) IV PRN (10:15)
[2019-10-20] MEDS ORDERED: fentaNYL 100 MCG/2 ML INJECTION (J3010) IV PRN (10:15)
[2019-10-20 10:20] VITALS: BP 160/76
--- NOTE | 2019-10-20 21:54 | ECGEPIP ---
[facility] Test Date: 2019-10-20 Pat Name: RENETTA BAILEY Department: Room: - Gender: Male Blow Molder: ABDON : 1975 Requested By: Kenneth Camarillo Order Number: [id number] Reading MD: Yogi Castillo Measurements Intervals [place] Rate: 69 P: 7 ND: 157 QRS: 53 QRSD: 108 T: 19 QT: 390 QTc: 420 Interpretive Statements SINUS RHYTHM POSSIBLE OLDF INFERIOR MYOCARDIAL INFARCT Electronically Signed on 10-20-2019 21:54:31 EDT by Yogi Castillo
--- NOTE | 2019-10-27 13:58 | RO ---
DATE OF PROCEDURE: 10/20/2019 PREPROCEDURE DIAGNOSIS: Left second toe osteomyelitis. POSTPROCEDURE DIAGNOSIS: Left second toe osteomyelitis. PROCEDURE: Left foot second toe amputation. SURGEON: Dr. Alexey Mirza PRENATAL GENETIC COUNSELOR: None. ANESTHESIA: Monitored anesthesia care. Preoperative injection of 10 mL of 1:1 mixture of 1% lidocaine plain and 1/2% Marcaine plain. ESTIMATED BLOOD LOSS: Minimal. MATERIALS: #3-0 nylon. INJECTABLES: None. SPECIMEN: Left second toe as well as culture aerobic and anaerobic. COMPLICATIONS: None. CONDITION: Stable. DESCRIPTION OF PROCEDURE: David Acosta is a 43-year-old male who presented to my office last week with an ulceration. He had noted a blister approximately two weeks ago, but delayed in seeking treatment. By the time he had arrived in my office, there was fully necrotic distal toe with exposed bone. He was started on antibiotic with plans for amputation. He presents today for said amputatoin. The patient site and side were identified and marked in preoperative holding area. Consent was reviewed and obtained. All risks, complications and alternatives to the procedure were explained to the patient in detail and all questions were answered. The patient was brought to the operating room and was placed on the operating room in supine position. Monitored anesthesia care was provided by the anesthesia team. Preoperative injection of 10 mL of 1:1 mixture of 1% lidocaine plain and 0.25% Marcaine plain were injected to the left foot. The left foot was prepped and draped in normal sterile fashion. A tourniquet was applied on the left ankle and inflated at 250 mmHg. The foot was inspected. The second toe had a fully necrotic distal toe with exposed bone and mal odor. A culture swab aerobic and anaerobic was taken of this. Following this, the toe was disarticulated using a #15 blade full thickness at the proximal interphalangeal joint. Proximal bone appeared in good condition, however, due to soft tissue nature of the head and neck of the proximal phalanx they were resected using a saggital saw to aid wound closure. This too was sent for pathology. The site was irrigated with normal saline. The extensor and flexor tendons were reflected. Following this, the wound was closed using #3-0 nylon. Sterile dressings were applied. The tourniquet was deflated. The patient was brought to the postanesthesia care unit (PACU) with vital signs stable and neurovascular status intact. She will be weight bearing as tolerated and will followup in the office in 2 days.
== END 2019-10-20 10:40 | disposition home or self-care (01) ==
LOC: M SDC 07:05
PROVIDERS: ATTEND Podiatrist Foot & Ankle Surgery
DX: E11.621 Type 2 diabetes mellitus with foot ulcer (principal); I10 Essential (primary) hypertension; E78.5 Hyperlipidemia, unspecified; Z79.84 Long term (current) use of oral hypoglycemic drugs; Z79.899 Other long term (current) drug therapy; M86.172 Other acute osteomyelitis, left ankle and foot
CPT/HCPCS: 28825; 36415; 80048; 85027; 87070; 87075; 87076; 87077; 87186; 88305; 88311; 93005; J0131; J0690; J2250; J2405; J3010

== ENCOUNTER → 2019-10-29 | Outpatient (REF) | payer OTHER ==
[~2019-10-29] MED LIST changes: -BUPIVACAINE HCL 0.5% 30 ML VIAL As Ordered ONE; +CEPH500T PO; -LIDOCAINE 1% SDV 30ML VIAL As Ordered ONE; -LIDOCAINE 2% 100MG/5ML SDV (FOR ANES.) As Ordered ONE; -MIDAZOLAM INJ 2MG/2ML VIAL (J2250 PER 1MG) As Ordered ONE; -ONDANSETRON 4MG/2ML VIAL As Ordered ONE; +TRAM50TA2 PO; -dexameTHASONE 4 MG/ML 1ML VIAL (J1100 PER 1MG) As Ordered ONE; -fentaNYL 100 MCG/2 ML INJECTION (J3010) As Ordered ONE; -propofoL 200 MG/20 ML VIAL As Ordered ONE
[2019-10-29 12:37] LABS: APPEARANCE, URINE HAZY (CLEAR); BACTERIA, URINE AUTO NEGATIVE (NEGATIVE); BILIRUBIN, URINE AUTO NEGATIVE (NEGATIVE); BLOOD, URINE BLOOD 1+ (NEGATIVE); CALCIUM OXALATE CRYSTALS SMALL; COLOR, URINE YELLOW (YELLOW); GLUCOSE, URINE (UA) AUTO NEGATIVE (NEGATIVE); KETONE, URINE AUTO NEGATIVE (NEGATIVE); LEUKOCYTE ESTERASE, URINE AUTO NEGATIVE (NEGATIVE); MUCUS, URINE SMALL (NEGATIVE); NITRITE, URINE AUTO NEGATIVE (NEGATIVE); PROTEIN, URINE AUTO 1+ mg/dL (NEGATIVE); RBC, URINE AUTO 2 /HPF (0-3); SPECIFIC GRAVITY URINE AUTO 1.016 (1.002-1.035); SQUAMOUS EPITHELIAL CELL UR AU 0 /HPF (0-6); UROBILINOGEN, URINE AUTO 0.2 mg/dL (0.0-2.0); WBC, URINE AUTO 1 /HPF (0-3)
[2019-10-29 12:50] LABS: CREATININE FOR GFR 1.61 MG/DL (0.70-1.30); GLOMERULAR FILTRATION RATE 49.7 (>60)
== END ==
LOC: M LAB REF 11:33
PROVIDERS: ATTEND Physician Assistant
DX: R31.29 Other microscopic hematuria (principal); E11.3213 Type 2 diabetes mellitus with mild nonproliferative diabetic retinopathy with macular edema, bilateral; I10 Essential (primary) hypertension; E16.2 Hypoglycemia, unspecified

== ENCOUNTER → 2020-01-21 | Outpatient (CLI) | payer OTHER ==
[~2020-01-21] MED LIST changes: +HYDR-3713 PO; +OLME20TA2 PO; +PANT40TA29 PO
== END ==
LOC: M LABSMTC 11:45
PROVIDERS: ATTEND Anesthesiology
DX: Z11.59 Encounter for screening for other viral diseases (principal)

== ENCOUNTER 2020-01-26 11:26 | Day surgery (SDC) | payer OTHER ==
[~2020-01-26] VITALS: Ht 180.3 cm; Wt 111.1 kg
[~2020-01-26 11:26] MED LIST changes: +BUPIVACAINE HCL 0.5% 30 ML VIAL As Ordered ONE; -HYDR-3713 PO; +LIDOCAINE 1% MDV 20ML VIAL SQ PRN; +LIDOCAINE 1% SDV 30ML VIAL As Ordered ONE; +LR 1,000 ML IV ONE; +ceFAZolin SOD 2 GM in IV 1 EA IV ONE; +dexameTHASONE 4 MG/ML 1ML VIAL (J1100 PER 1MG) As Ordered ONE
[2020-01-26] MEDS ORDERED: propofoL 500 MG/50 ML VIAL As Ordered ONE (12:23)
[2020-01-26] MEDS ORDERED: MIDAZOLAM INJ 2MG/2ML VIAL (J2250 PER 1MG) As Ordered ONE (12:23)
[2020-01-26] MEDS ORDERED: dexameTHASONE 4 MG/ML 1ML VIAL (J1100 PER 1MG) As Ordered ONE ×2 (12:23→13:48)
[2020-01-26] MEDS ORDERED: ONDANSETRON 4MG/2ML VIAL As Ordered ONE (12:23)
[2020-01-26] MEDS ORDERED: LIDOCAINE 2% 100MG/5ML SDV (FOR ANES.) As Ordered ONE (12:23)
[2020-01-26] MEDS ORDERED: fentaNYL 100 MCG/2 ML INJECTION (J3010) As Ordered ONE (12:24)
[2020-01-26] MEDS ORDERED: LIDOCAINE 1% MDV 20ML VIAL As Ordered ONE (13:47)
[2020-01-26] MEDS ORDERED: BUPIVACAINE HCL 0.5% 10ML VIAL As Ordered ONE (13:48)
[2020-01-26] MEDS ORDERED: HYDR-3713 PO (15:23)
[2020-01-26 15:45] VITALS: BP 137/78
--- NOTE | 2020-02-17 13:07 | RO ---
DATE OF OPERATION: 01/26/2020 PREOPERATIVE DIAGNOSIS: Left second metatarsal osteomyelitis and wound. POSTOPERATIVE DIAGNOSIS: Left second metatarsal osteomyelitis and wound. PROCEDURE: Left foot second metatarsal head excision. SURGEON: Alexey Mirza DPM DEVULCANIZER HEAD: None. ANESTHESIA: Monitored anesthesia care. PREOPERATIVE INJECTION: 10 mL of a 1:1 mixture of 1% lidocaine plain and 0.5% Marcaine plain. ESTIMATED BLOOD LOSS: Minimal. MATERIALS: 3-0 nylon. INJECTABLES: None. SPECIMEN: Left second metatarsal head. COMPLICATIONS: None. CONDITION: Stable. INDICATIONS: David Heath is a 44-year-old male who was brought to [facility] with ulceration of his left foot. He has a probing ulceration to the bone near the second metatarsal head. Decision was made to bring him to the operating room for metatarsal head excision. The patient's side and site were identified and marked preoperatively. Consent was reviewed and obtained. All risks, complications, and alternatives to the procedure explained to the patient in detail and all questions were answered. PROCEDURE: The patient was brought to the operating room and placed on the operating room table in the supine position. Monitored anesthesia care was delivered by the anesthesia team. Preoperative injection of 10 mL of a 1:1 mixture of 1% lidocaine plain and 0.5% Marcaine plain were injected in the left foot. The left foot was prepped and draped in normal sterile fashion. The tourniquet was applied on the left ankle and inflated to 250 mmHg. Dorsal incision made over the main portion of the second toe and metatarsal head. This was carried full thickness with a #15 blade. Dissection was carried until the remaining parts of the proximal phalanx and the metatarsal head were identified. Soft tissue attachments were released and the metatarsal head was excised with a sagittal saw as well as the small remaining portion of the base of the proximal phalanx. Site was then irrigated with normal saline. Wound closure was performed with 3-0 nylon. Sterile dressings were applied. Tourniquet was deflated. The patient was brought PACU with vital signs stable and neurovascular status intact. He will be weightbearing as tolerated and follow up in office in two days. DANE
== END 2020-01-26 16:02 | disposition home or self-care (01) ==
LOC: M SDC 11:26
PROVIDERS: ATTEND Podiatrist Foot & Ankle Surgery
DX: M86.172 Other acute osteomyelitis, left ankle and foot (principal); E11.9 Type 2 diabetes mellitus without complications; I10 Essential (primary) hypertension; F32.9 Major depressive disorder, single episode, unspecified; Z79.84 Long term (current) use of oral hypoglycemic drugs; Z79.899 Other long term (current) drug therapy
CPT/HCPCS: 28122; 88307; J0690; J1100; J2250; J2405; J3010

== ENCOUNTER → 2020-02-22 | Outpatient (CLI) | payer OTHER ==
[~2020-02-22] MED LIST changes: -BUPIVACAINE HCL 0.5% 30 ML VIAL As Ordered ONE; +HYDR-3713 PO; -LIDOCAINE 1% MDV 20ML VIAL SQ PRN; -LIDOCAINE 1% SDV 30ML VIAL As Ordered ONE; -LR 1,000 ML IV ONE; -ceFAZolin SOD 2 GM in IV 1 EA IV ONE; -dexameTHASONE 4 MG/ML 1ML VIAL (J1100 PER 1MG) As Ordered ONE
--- NOTE | 2020-02-22 11:55 | REPVR ---
PROCEDURE INFORMATION: Exam: US Duplex Left Lower Extremity Veins, Limited Exam date and time: 02/22/2020 11:39 AM Age: 44 years old Clinical indication: Pain; Leg, upper; Left; Additional info: Having medial left thigh pain; R/O dvt TECHNIQUE: Imaging protocol: Real-time Duplex ultrasound of the Left Lower Extremity with 2-D townsend scale, color Doppler flow and spectral waveform analysis with image documentation. Limited exam focused on the left lower extremity veins. COMPARISON: None provided. FINDINGS: Left deep veins: The common femoral, femoral, proximal profunda femoral and popliteal veins are patent without thrombus. Normal Doppler waveforms. Normal compressibility and/or augmentation response. The femoral vein is duplicated in its mid aspect. Left superficial veins: Unremarkable. Saphenofemoral junction is patent without thrombus. Soft tissues: Unremarkable. IMPRESSION: No deep venous thrombus demonstrated in the left lower extremity. Electronically signed by: Wes Richardson On 02/22/2020 11:55:36 AM
== END ==
LOC: M RAD 11:19
PROVIDERS: ATTEND Physician Assistant
DX: M79.652 Pain in left thigh (principal)

== ENCOUNTER → 2020-08-07 | Outpatient (CLI) | payer OTHER, SELFPAY ==
[~2020-08-07] MED LIST changes: -LISI-542 PO; +LISI-898 PO
--- NOTE | 2020-08-10 13:46 | SLEEPHOME ---
DATE: 08/07/2020 ORDERED BY: Wes Morfin Diagnostic home sleep testing was performed due to concern for the obstructive sleep apnea syndrome in this patient with a history of hypersomnia. For testing, a nocturnal T3 respiratory monitoring device was used. Continuous record was made of pulse, oxygen saturation, air flow, chest and abdominal strain, and body position. There was 9 hours and 59 minutes of data reviewed. There was 6 hours and 57 minutes marked as sleep time. During the interval marked sleep time, there were 268 respiratory events identified of 10 seconds in duration or greater for a respiratory event index of 38.5. The events were primarily obstructive. Baseline pulse rate 74. Pulse rate ranged 69-83. Baseline saturation 93%. Saturations fell to 81%, and testing was performed in both the supine and nonsupine positions. IMPRESSION: Abnormal home sleep testing with repetitive respiratory events and oxygen desaturations to 81% with a respiratory event index of 38.5 is consistent with the obstructive sleep apnea syndrome. RECOMMENDATION: The patient should be encouraged to undergo formal sleep evaluation.
== END ==
LOC: M SLEEP HO 10:32
PROVIDERS: ATTEND Physician Assistant
DX: G47.10 Hypersomnia, unspecified (principal)

== ENCOUNTER → 2020-11-01 | Outpatient (CLI) | payer OTHER ==
--- NOTE | 2020-11-01 18:35 | REP ---
INDICATION: IMPINGEMENT SYNDROME OF RIGHT SHOULDER. COMPARISON: None. TECHNIQUE: Coronal oblique T1, T2 fat sat, sagittal oblique T2 fat sat, axial T2 fat sat, gradient echo. The study is limited by patient motion. FINDINGS: Rotator cuff: There is moderate tendinopathy of the supraspinatus tendon. There is a partial undersurface tear of the anterior aspect of the supraspinatus tendon. There is mild tendinopathy/tendinitis of the subscapularis. Acromioclavicular joint: There are mild hypertrophic degenerative changes of the acromioclavicular joint. Acromion: Type 2 and downward sloping. Biceps Tendon: In bicipital groove, with mild surrounding fluid. There is a partial tear of the proximal biceps tendon. Hill Sach's deformity: None. Deltoid muscle: No abnormal signal. Biceps labral complex: The biceps labral complex is torn. Labrum: There is a diffuse SLAP tear. There is a posterior labral tear. Cartilage: There is mild chondromalacia of the glenohumeral joint. Bone marrow: There is subchondral marrow edema on both sides of the acromioclavicular joint. Small subcortical cystic change is seen in the superolateral humeral head. Joint fluid: No significant effusion. IMPRESSION: Moderate tendinopathy supraspinatus tendon with a partial undersurface tear anteriorly. Mild tendinopathy/tendinitis of the subscapularis tendon. Mild hypertrophic degenerative change acromioclavicular joint with associated subchondral marrow edema. Acromion is type 2 in downward sloping. Partial tear proximal biceps tendon. There is a tear of the biceps labral complex. There is a SLAP tear. There is also a tear of the posterior labrum. <Electronically signed by Miguel Carmona > 11/01/20 [id number]
--- NOTE | 2020-11-02 12:17 | REP ---
INDICATION: IMPINGEMENT SYNDROME RIGHT SHOULDER. COMPARISON: None. TECHNIQUE: Multiple sequences obtained in the sagittal axial planes. FINDINGS: The vertebral bodies are normal in height and well aligned with normal cervical lordosis. No abnormal marrow signal is seen. Disc spaces are well preserved. Spinal cord demonstrates no abnormal signal. There is no significant disc bulging or herniation at C2-3, C3-4 or C4-5, with no spinal stenosis or neural foraminal narrowing at these levels. At C5-6 there is mild diffuse disc bulging. There is mild effacement of the anterior subarachnoid space without cord compression. There is moderate left-sided foraminal narrowing at this level. At C6-7 there is mild diffuse disc bulging. There is no spinal stenosis or foraminal narrowing. IMPRESSION: Mild diffuse disc bulging at C5-6 and C6-7. At the C5-6 level there is mild effacement of the anterior subarachnoid space without cord compression. There is moderate left-sided foraminal narrowing. Preliminary report provided by [facility] at the time of the exam. <Electronically signed by Miguel Carmona > 11/02/20 [id number]
== END ==
LOC: M RAD 16:22
PROVIDERS: ATTEND Physician Assistant
DX: M75.41 Impingement syndrome of right shoulder (principal); M50.222 Other cervical disc displacement at C5-C6 level; M50.223 Other cervical disc displacement at C6-C7 level; S43.431A Superior glenoid labrum lesion of right shoulder, initial encounter; X58.XXXA Exposure to other specified factors, initial encounter; Y92.9 Unspecified place or not applicable

== ENCOUNTER → 2021-06-27 | Outpatient (CLI) | payer OTHER ==
[~2021-06-27] MED LIST changes: +LIDOCAINE 1% MDV 20ML VIAL As Ordered ONE; -LISI-898 PO; +LISI5TAB11 PO; +methylPREDNISolone SUSP 40MG/ML 1ML VIAL (DEPO MEDROL) As Ordered ONE
== END ==
LOC: M IRPRO 13:31
PROVIDERS: ATTEND Physician Assistant
DX: S46.111D Strain of muscle, fascia and tendon of long head of biceps, right arm, subsequent encounter (principal); S43.431D Superior glenoid labrum lesion of right shoulder, subsequent encounter; S46.011D Strain of muscle(s) and tendon(s) of the rotator cuff of right shoulder, subsequent encounter
CPT/HCPCS: 20550; 76942; J1030

== ENCOUNTER → 2023-11-28 | Outpatient (CLI) | payer BC ==
[~2023-11-28] MED LIST changes: -DOXY-350 PO; +DOXY-440 PO; +GLIP5TAB17 PO; -GLIP5TAB8 PO; -LIDOCAINE 1% MDV 20ML VIAL As Ordered ONE; -OLME20TA2 PO; +OLME20TA50 PO; -methylPREDNISolone SUSP 40MG/ML 1ML VIAL (DEPO MEDROL) As Ordered ONE
== END ==
LOC: M RAD 07:18
PROVIDERS: ATTEND Physician Assistant
DX: R10.9 Unspecified abdominal pain (principal); Z53.8 Procedure and treatment not carried out for other reasons

== ENCOUNTER → 2023-12-11 | Outpatient (CLI) | payer BC ==
[~2023-12-11] MED LIST changes: +ISOVUE-370 76% 100ML VIAL As Ordered ONE
== END ==
LOC: M RAD 07:31
PROVIDERS: ATTEND Physician Assistant
DX: S38.1XXA Crushing injury of abdomen, lower back, and pelvis, initial encounter (principal); S22.41XA Multiple fractures of ribs, right side, initial encounter for closed fracture; R16.1 Splenomegaly, not elsewhere classified; W19.XXXA Unspecified fall, initial encounter; Y93.9 Activity, unspecified; Y92.9 Unspecified place or not applicable
CPT/HCPCS: 74177; Q9967